=== PATIENT | male | born 1940 | race Caucasian/White ===

== ENCOUNTER → 2019-04-24 08:37 | Outpatient (CLI) | payer MEDICARE, OTHER ==
[2014-10-27 12:48] VITALS: BMI 27.6
[~2019-04-24 08:37] MED LIST: ASPIRIN325 MG PO; HEPARIN 2525 K U/250 IV; HEPARIN SO1000 UNIT/ IV; LOPRESSOR25 MG PO
== END | disposition home or self-care (01) ==
LOC: D.HCCARDIO 08:37
PROVIDERS: ATTEND Internal Medicine Cardiovascular Disease
DX: I34.0 Nonrheumatic mitral (valve) insufficiency (principal)

== ENCOUNTER → 2019-07-24 10:18 | Outpatient (CLI) | payer MEDICARE, OTHER ==
[2014-10-27 12:48] VITALS: BMI 27.6
== END | disposition home or self-care (01) ==
LOC: D.HCCECHO 10:18
PROVIDERS: ATTEND Internal Medicine Cardiovascular Disease
DX: I34.0 Nonrheumatic mitral (valve) insufficiency (principal)